=== PATIENT | male | born 1970 | race Caucasian/White ===

== ENCOUNTER 2019-09-29 10:34 | Observation (INO) | payer OTHER ==
--- NOTE | 2019-09-29 10:44 | ED ---
General Adult HPI - General Stated complaint: Chest Pain Time Seen by Provider: 09/29/19 10:34 Source: patient, RN notes reviewed, old records reviewed - History of Present Illness Initial comments: This is a 49-year-old male who presents emergency department stating that for the last 3 days he's been having some left-sided abdominal pain left upper quadrant in particular. Patient states she does have a history of pancreatitis from heavy drinking years ago. Patient states last night however he started having left-sided chest pain and the pain was radiating down his left arm today the pain became much worse continued to radiate he also became short of breath and very diaphoretic. Patient states at this point time he felt lightheaded so he decided to call EMS. Patient denies any recent fever chills or cough. Patient denies any vomiting or diarrhea. Patient denies any back pain. Patient denies headache patient denies numbness weakness. - Related Data Home Medications Medication Instructions Recorded Confirmed No Known Home Medications 09/29/19 09/29/19 Allergies Allergy/AdvReac Type Severity Reaction Status Date / Time buspirone Allergy Anaphylaxis Verified 09/29/19 12:05 ketorolac [From Toradol] Allergy Anaphylaxis Verified 09/29/19 12:05 Review of Systems ROS Statement: Those systems with pertinent positive or pertinent negative responses have been documented in the HPI. ROS Other: All systems not noted in ROS Statement are negative. General Exam - General Exam Comments Initial Comments: GENERAL: Patient is well-developed and well-nourished. Patient is nontoxic and well- hydrated and is in mild distress. ENT: Neck is soft and supple. No significant lymphadenopathy is noted. Oropharynx is clear. Moist mucous membranes. Neck has full range of motion without eliciting any pain. EYES: The sclera were anicteric and conjunctiva were pink and moist. Extraocular movements were intact and pupils were equal round and reactive to light. Eyelids were unremarkable. PULMONARY: Unlabored respirations. Good breath sounds bilaterally. No audible rales rhonchi or wheezing was noted. CARDIOVASCULAR: There is a regular rate and rhythm without any murmurs gallops or rubs. ABDOMEN: Patient is tenderness in the right upper quadrant right lower quadrant on palpation. Patient has minimal epigastric tenderness. SKIN: Skin is clear with no lesions or rashes and otherwise unremarkable. NEUROLOGIC: Patient is alert and oriented x3. Cranial nerves II through XII are grossly i ntact. Motor and sensory are also intact. Normal speech, volume and content. Symmetrical smile. MUSCULOSKELETAL: Normal extremities with adequate strength and full range of motion. No lower extremity swelling or edema. No calf tenderness. LYMPHATICS: No significant lymphadenopathy is noted PSYCHIATRIC: Normal psychiatric evaluation. Course Vital Signs 09/29/19 09/29/19 10:36 12:23 Temperature 98.2 F Pulse Rate 86 88 Respiratory 18 16 Rate Blood Pressure 163/98 144/95 O2 Sat by Pulse 95 95 Oximetry Medical Decision Making - Medical Decision Making EKG shows normal sinus rhythm at 91 bpm PA interval 144 QRS is 92 QT interval 360 QTC is 442 per patient's EKG shows no ST segment elevation or depression. Patient states chest pain has subsided but he still continues to have left upper quadrant abdominal pain. I spoke with Dr. Bustamante he agreed to admit the patient admitted the patient wrote admitting orders. - Lab Data Result diagrams: 09/29/19 11:19 09/29/19 11:19 Lab Results 09/29/19 09/29/19 09/29/19 Range/Units 11:19 11:19 11:19 WBC 6.2 (3.8-10.6) k/uL RBC 4.50 (4.30-5.90) m/uL Hgb 14.8 (13.0-17.5) gm/dL Hct 44.7 (39.0-53.0) % MCV 99.2 (80.0-100.0) fL MCH 32.9 (25.0-35.0) pg MCHC 33.2 (31.0-37.0) g/dL RDW 14.0 (11.5-15.5) % Plt Count 226 (150-450) k/uL Neutrophils % 74 % Lymphocytes % 15 % Monocytes % 7 % Eosinophils % 2 % Basophils % 1 % Neutrophils # 4.6 (1.3-7.7) k/uL Lymphocytes # 1.0 (1.0-4.8) k/uL Monocytes # 0.4 (0-1.0) k/uL Eosinophils # 0.1 (0-0.7) k/uL Basophils # 0.0 (0-0.2) k/uL PT 9.5 (9.0-12.0) sec INR 0.9 (<1.2) APTT 25.0 (22.0-30.0) sec Sodium 138 (137-145) mmol/L Potassium 4.5 (3.5-5.1) mmol/L Chloride 103 (98-107) mmol/L Carbon Dioxide 27 (22-30) mmol/L Anion Gap 8 mmol/L BUN 14 (9-20) mg/dL Creatinine 0.84 (0.66-1.25) mg/dL Est GFR (CKD-EPI)AfAm >90 (>60 ml/min/1.73 sqM) Est GFR (CKD-EPI)NonAf >90 (>60 ml/min/1.73 sqM) Glucose 110 H (74-99) mg/dL Plasma Lactic Acid Darrell (0.7-2.0) mmol/L Calcium 9.5 (8.4-10.2) mg/dL Magnesium 2.1 (1.6-2.3) mg/dL Total Bilirubin 0.4 (0.2-1.3) mg/dL AST 47 (17-59) U/L ALT 44 (4-49) U/L Alkaline Phosphatase 96 (38-126) U/L Troponin I (0.000-0.034) ng/mL Total Protein 7.6 (6.3-8.2) g/dL Albumin 4.6 (3.5-5.0) g/dL Amylase 65 (30-110) U/L Lipase 287 (23-300) U/L 09/29/19 09/29/19 Range/Units 11:19 11:19 WBC (3.8-10.6) k/uL RBC (4.30-5.90) m/uL Hgb (13.0-17.5) gm/dL Hct (39.0-53.0) % MCV (80.0-100.0) fL MCH (25.0-35.0) pg MCHC (31.0-37.0) g/dL RDW (11.5-15.5) % Plt Count (150-450) k/uL Neutrophils % % Lymphocytes % % Monocytes % % Eosinophils % % Basophils % % Neutrophils # (1.3-7.7) k/uL Lymphocytes # (1.0-4.8) k/uL Monocytes # (0-1.0) k/uL Eosinophils # (0-0.7) k/uL Basophils # (0-0.2) k/uL PT (9.0-12.0) sec INR (<1.2) APTT (22.0-30.0) sec Sodium (137-145) mmol/L Potassium (3.5-5.1) mmol/L Chloride (98-107) mmol/L Carbon Dioxide (22-30) mmol/L Anion Gap mmol/L BUN (9-20) mg/dL Creatinine (0.66-1.25) mg/dL Est GFR (CKD-EPI)AfAm (>60 ml/min/1.73 sqM) Est GFR (CKD-EPI)NonAf (>60 ml/min/1.73 sqM) Glucose (74-99) mg/dL Plasma Lactic Acid Darrell 1.4 (0.7-2.0) mmol/L Calcium (8.4-10.2) mg/dL Magnesium (1.6-2.3) mg/dL Total Bilirubin (0.2-1.3) mg/dL AST (17-59) U/L ALT (4-49) U/L Alkaline Phosphatase (38-126) U/L Troponin I <0.012 (0.000-0.034) ng/mL Total Protein (6.3-8.2) g/dL Albumin (3.5-5.0) g/dL Amylase (30-110) U/L Lipase (23-300) U/L Disposition Clinical Impression: Chest pain, Abdominal pain Disposition: ADMITTED IP TO THIS [facility] Referrals: Nonstaff,Physician [Primary Care Provider] - 1-2 days Time of Disposition: 12:33
[2019-09-29 11:32] LABS: Basophils % (A) 1 %; Eosinophils # (A) 0.1 k/uL (0-0.7); Eosinophils % (A) 2 %; HCT 44.7 % (39.0-53.0); HGB 14.8 gm/dL (13.0-17.5); Lymphocytes % (A) 15 %; MCH 32.9 pg (25.0-35.0); MCHC 33.2 g/dL (31.0-37.0); MCV 99.2 fL (80.0-100.0); Mean Platelet Volume 7.5; Monocytes # (A) 0.4 k/uL (0-1.0); Monocytes % (A) 7 %; Neutrophils # (A) 4.6 k/uL (1.3-7.7); Neutrophils % (A) 74 %; Platelet Count 226 k/uL (150-450); WBC 6.2 k/uL (3.8-10.6)
[2019-09-29 11:40] LABS: INR 0.9 (<1.2); Prothrombin Time 9.5 sec (9.0-12.0)
[2019-09-29 11:41] LABS: ALT 44 U/L (4-49); AST 47 U/L (17-59); African American GFR (CKD) >90 (>60 ml/min/1.73 sqM); Albumin 4.6 g/dL (3.5-5.0); Alkaline Phosphatase 96 U/L (38-126); Amylase 65 U/L (30-110); Anion Gap 8 mmol/L; Blood Urea Nitrogen 14 mg/dL (9-20); Calcium 9.5 mg/dL (8.4-10.2); Carbon Dioxide 27 mmol/L (22-30); Chloride 103 mmol/L (98-107); Glucose 110 mg/dL (74-99); Lipase 287 U/L (23-300); Magnesium 2.1 mg/dL (1.6-2.3); Non-African American GFR(CKD) >90 (>60 ml/min/1.73 sqM); Potassium 4.5 mmol/L (3.5-5.1); Sodium 138 mmol/L (137-145); Total Bilirubin 0.4 mg/dL (0.2-1.3); Total Protein 7.6 g/dL (6.3-8.2)
--- NOTE | 2019-09-29 11:57 | XR ---
EXAMINATION TYPE: XR chest 2V DATE OF EXAM: 09/29/2019 COMPARISON: None HISTORY: 49-year-old male with chest pain TECHNIQUE: PA and lateral views FINDINGS: Heart normal size. Mild interstitial prominence. No consolidation or pleural effusion seen. IMPRESSION: Chronic appearing changes. No definite acute cardiopulmonary process.
--- NOTE | 2019-09-29 12:03 | CT ---
EXAMINATION TYPE: CT abdomen pelvis w con DATE OF EXAM: 09/29/2019 COMPARISON: NONE HISTORY: 49-year-old male Generalized pain with nausea. TECHNIQUE: Contiguous axial scanning of the abdomen and pelvis following administration of 100 ml Iso joseph 300 IV contrast. Delayed images through the kidneys and coronal/sagittal reconstructions perform ed. CT DLP: 3118 mGycm Automated exposure control for dose reduction was used. FINDINGS: Heart normal size without pericardial effusion. Mild dependent atelectasis. No pleural effusion. Tiny hiatal hernia. Liver enlarged at 20.2 cm with marked low attenuation of the hepatic parenchyma and some fatty sparin g along the gallbladder fossa. Portal venous system is patent. No biliary ductal dilatation. Gallbladder, adrenal glands, kidneys, spleen with small anterior splenule and pancreas appear within normal limits. No dilated small bowel, free fluid, or free air. No mesenteric or retroperitoneal lymphadenopathy. Normal appendix. Mild stool burden. Mild diverticular change along the descending colon. No pericolon ic inflammatory change. Mild circumferential bladder wall thickening. No abnormal fluid collection in the pelvis or pelvic ly mphadenopathy. Right-sided pelvic phleboliths. Slightly patulous left inguinal canal. Bones: Some bony irregularity along the anterior left iliac crest, possible posttraumatic or postsurg ical deformity and there was prior bone graft harvesting. IMPRESSION: 1. HEPATOMEGALY (20.2 CM) WITH MARKED HEPATIC STEATOSIS. CORRELATE WITH LFT's, LIPID PROFILE, AND PAT IENT RISK FACTORS. 2. MINIMAL COLONIC DIVERTICULOSIS ON THE LEFT WITHOUT EVIDENCE FOR ACUTE DIVERTICULITIS. 3. MILD CIRCUMFERENTIAL BLADDER WALL THICKENING MAY BE CHRONIC IN THIS PATIENT. CORRELATE TO EXCLUDE CYSTITIS. 4. TINY HIATAL HERNIA.
[2019-09-29] MEDS ORDERED: HYDROmorphone 1 MG/ML 1 ML SYRINGE IVP STA (12:17)
[2019-09-29 12:24] VITALS: RESP 16
[2019-09-29] MEDS ORDERED: NITROGLYCERIN SL TABS 0.4 MG TAB SUBLINGUAL PRN (12:35)
[2019-09-29 13:30] VITALS: BP 153/88; PULSE 81; TEMP 98.4
[2019-09-29] MEDS ORDERED: ACETAMINOPHEN IV (For NPO) 1,000 MG in EMPTY BAG 1 BAG IVPB PRN (13:49)
[2019-09-29] MEDS ORDERED: PANTOPRAZOLE 40 MG/10 ML VIAL IVP SCH (14:00)
--- NOTE | 2019-09-29 15:11 | P.CRDCN ---
History of Present Illness History of present illness: HISTORY OF PRESENTING ILLNESS This is a pleasant 49-year-old male past medical history significant for pancreatitis and chronic nicotine dependence. He states he smokes 4 cigarettes per week. He denies prior history of coronary artery disease and does not follow in the office with a kettle firer. We have been asked to see in consultation for chest pain. He states he was working this morning in front of the [employer] in the shade. All of a sudden he had an acute onset of joey phoresiss, light headedness and chest pain. He also had left upper quadrant abdominal pain with some associated nausea. He attempted to walk to the hospital and his pain was worsening. He sat down and the pain improved. He has also been having diarrhea for 3 days and pain in his left hand and up his arm. He has seen a chiropractor twice and undergone adjustments however has seen no improvement in his pain. He is groaning and thrashing on the bed with burning pain in the left hand and up his arm and ongoing sharp abdominal pain. DIAGNOSTICS EKG reveals sinus mechanism with non-specific abnormalities. Chest xray negative for an acute cardiopulmonary process. CT of the abdomen reveals hepatomegaly with hepatic steatosis, colonic diverticulosis with no diverticulitis, mild bladder wall thickening and tiny hiatal hernia. Laboratory reviewed, CBC unremarkable, sodium 138, potassium 4.5, creatinine 0.84, magnesium 2.1, cardiac enzymes negative 2. He takes no daily cardiac medications. REVIEW OF SYSTEMS At the time of my exam: CONSTITUTIONAL: Denies fever or chills. CARDIOVASCULAR: Complains of chest pain. Denies shortness of breath, orthopnea, PND or palpitations. RESPIRATORY: Denies cough. GASTROINTESTINAL: Complains of abdominal pain and diarrhea. Denies constipation, nausea or vomiting. MUSCULOSKELETAL: Complains of burning left hand pain. NEUROLOGIC: Denies numbness, tingling or weakness. ENDOCRINE: Denies fatigue, weight change, polydipsia or polyurina. GENITOURINARY: Denies burning, hematuria or urgency with micturation. HEMATOLOGIC: Denies history of anemia or bleeding. PHYSICAL EXAMINATION Blood pressure 153/88 heart rate 73 afebrile and maintaining oxygen saturation on room air. CONSTITUTIONAL: No apparent distress. Obese. HEENT: Head is normocephalic. Pupils are equal, round. Sclerae anicteric. Mucous membranes of the mouth are moist. No JVD. No carotid bruit. CHEST EXAMINATION: Lungs are clear to auscultation. No chest wall tenderness is noted on palpation or with deep breathing. HEART EXAMINATION: Regular rate and rhythm. S1, S2 heard. No murmurs, gallops or rub. ABDOMEN: Soft, nontender. Positive bowel sounds. EXTREMITIES: 2+ peripheral pulses, no lower extremity edema and no calf tenderness. NEUROLOGIC EXAMINATION: Patient is awake, alert and oriented x3. ASSESSMENT Chest pain with radiation down the left arm. Some features of unstable angina. Abdominal pain with associated nausea and diarrhea Obese, BMI 39 PLAN Continue to obtain serial cardiac enzymes to rule out an acute event. Obtain 2-D echocardiogram and Doppler study to assess cardiac structure and function. Nothing by mouth after midnight tonight for possible stress test in the morning. Further recommendations to follow based upon clinical course. Complete tobacco cessation recommended. Thank you kindly for this consultation. Nurse Practitioner note has been reviewed, I agree with a documented findings and plan of care. Patient was seen and examined. Past Medical History Additional Past Medical History / Comment(s): pancreatitis, anxiety, ddd History of Any Multi-Drug Resistant Organisms: None Reported Past Surgical History: No Surgical Hx Reported Past Psychological History: Anxiety Smoking Status: Former smoker Past Alcohol Use History: Rare Past Drug Use History: Marijuana Medications and Allergies Home Medications Medication Instructions Recorded Confirmed Type No Known Home Medications 09/29/19 09/29/19 History Allergies Allergy/AdvReac Type Severity Reaction Status Date / Time buspirone Allergy Anaphylaxis Verified 09/29/19 12:05 ketorolac [From Toradol] Allergy Anaphylaxis Verified 09/29/19 12:05 Physical Exam Vitals: Vital Signs Temp Pulse Pulse Resp BP BP Pulse Ox 09/29/19 13:04 73 16 98 09/29/19 12:55 98.4 F 81 14 153/88 95 09/29/19 12:35 93 L 09/29/19 12:23 88 16 144/95 95 09/29/19 10:36 98.2 F 86 18 163/98 95 Intake and Output 09/29/19 09/29/19 09/29/19 06:59 14:59 22:59 Other: # Voids 1 Weight 145.15 kg Results 09/29/19 11:19 09/29/19 11:19 Cardiac Enzymes 09/29/19 09/29/1909/28/20 Range/Units 11:19 11:19 14:17 AST 47 (17-59) U/L Troponin I <0.012 <0.012 (0.000-0.034) ng/mL Coagulation 09/29/19 Range/Units 11:19 PT 9.5 (9.0-12.0) sec APTT 25.0 (22.0-30.0) sec CBC 09/29/19 Range/Units 11:19 WBC 6.2 (3.8-10.6) k/uL RBC 4.50 (4.30-5.90) m/uL Hgb 14.8 (13.0-17.5) gm/dL Hct 44.7 (39.0-53.0) % Plt Count 226 (150-450) k/uL Comprehensive Metabolic Panel 09/29/19 Range/Units 11:19 Sodium 138 (137-145) mmol/L Potassium 4.5 (3.5-5.1) mmol/L Chloride 103 (98-107) mmol/L Carbon Dioxide 27 (22-30) mmol/L BUN 14 (9-20) mg/dL Creatinine 0.84 (0.66-1.25) mg/dL Glucose 110 H (74-99) mg/dL Calcium 9.5 (8.4-10.2) mg/dL AST 47 (17-59) U/L ALT 44 (4-49) U/L Alkaline Phosphatase 96 (38-126) U/L Total Protein 7.6 (6.3-8.2) g/dL Albumin 4.6 (3.5-5.0) g/dL Current Medications Generic Name Dose Route Start Last Admin Trade Name Freq PRN Reason Stop Dose Admin Aspirin 325 mg 09/30/19 09:00 Aspirin PO DAILY [facility] Acetaminophen 1,000 mg/ IV 100 mls @ 400 mls/hr 09/29/19 13:49 Solution IVPB 09/30/19 06:14 Q6HR PRN Pain Nitroglycerin 0.4 mg 09/29/19 12:35 Nitrostat SUBLINGUAL Q5M PRN Chest Pain Nitroglycerin 1 inch 09/29/19 18:00 Nitro-Bid Oint TOPICAL Q6HR [facility] Pantoprazole Sodium 40 mg 09/29/19 14:00 09/29/19 14:11 Protonix IVP 40 mg DAILY [facility] Administration Intake and Output 09/29/19 09/29/19 09/29/19 06:59 14:59 22:59 Other: # Voids 1 Weight 145.15 kg Patient Weight 09/30/19 06:59 Weight 145.15 kg 09/29/19 11:19 09/29/19 11:19
[2019-09-29] MEDS ORDERED: HYDROmorphone 0.5 MG/0.5 ML SYRINGE IVP STA (15:53)
--- NOTE | 2019-09-29 16:59 | P.GSCN ---
History of Present Illness Consult date: 09/29/19 Reason for Consult: Abdominal pain History of present illness: Is a 49-year-old male who has complaints of left-sided abdominal pain. Patient obese. He has a very protuberant abdomen. Patient's points of left-sided abdominal pain which radiates to his back. Past Medical History Additional Past Medical History / Comment(s): pancreatitis, anxiety, ddd History of Any Multi-Drug Resistant Organisms: None Reported Past Surgical History: No Surgical Hx Reported Past Psychological History: Anxiety Smoking Status: Former smoker Past Alcohol Use History: Rare Past Drug Use History: Marijuana Medications and Allergies Home Medications Medication Instructions Recorded Confirmed Type No Known Home Medications 09/29/19 09/29/19 History Allergies Allergy/AdvReac Type Severity Reaction Status Date / Time buspirone Allergy Anaphylaxis Verified 09/29/19 12:05 ketorolac [From Toradol] Allergy Anaphylaxis Verified 09/29/19 12:05 Surgical - Exam Vital Signs Temp Pulse Resp BP Pulse Ox 98.2 F 86 18 163/98 95 09/29/19 10:36 09/29/19 10:36 09/29/19 10:36 09/29/19 10:36 09/29/19 10:36 - General well developed, well nourished, no distress - Eyes PERRL - ENT normal pinna - Neck no masses - Respiratory normal expansion - Cardiovascular Rhythm: regular - Abdomen Minimal left-sided tenderness Abdomen: soft Results - Labs 09/29/19 11:19 09/29/19 11:19 Abnormal Lab Results - Last 24 Hours (Table) 09/29/19 Range/Units 11:19 Glucose 110 H (74-99) mg/dL Diabetes panel 09/29/19 Range/Units 11:19 Sodium 138 (137-145) mmol/L Potassium 4.5 (3.5-5.1) mmol/L Chloride 103 (98-107) mmol/L Carbon Dioxide 27 (22-30) mmol/L BUN 14 (9-20) mg/dL Creatinine 0.84 (0.66-1.25) mg/dL Glucose 110 H (74-99) mg/dL Calcium 9.5 (8.4-10.2) mg/dL AST 47 (17-59) U/L ALT 44 (4-49) U/L Alkaline Phosphatase 96 (38-126) U/L Total Protein 7.6 (6.3-8.2) g/dL Albumin 4.6 (3.5-5.0) g/dL Calcium panel 09/29/19 Range/Units 11:19 Calcium 9.5 (8.4-10.2) mg/dL Albumin 4.6 (3.5-5.0) g/dL Pituitary panel 09/29/19 Range/Units 11:19 Sodium 138 (137-145) mmol/L Potassium 4.5 (3.5-5.1) mmol/L Chloride 103 (98-107) mmol/L Carbon Dioxide 27 (22-30) mmol/L BUN 14 (9-20) mg/dL Creatinine 0.84 (0.66-1.25) mg/dL Glucose 110 H (74-99) mg/dL Calcium 9.5 (8.4-10.2) mg/dL Adrenal panel 09/29/19 Range/Units 11:19 Sodium 138 (137-145) mmol/L Potassium 4.5 (3.5-5.1) mmol/L Chloride 103 (98-107) mmol/L Carbon Dioxide 27 (22-30) mmol/L BUN 14 (9-20) mg/dL Creatinine 0.84 (0.66-1.25) mg/dL Glucose 110 H (74-99) mg/dL Calcium 9.5 (8.4-10.2) mg/dL Total Bilirubin 0.4 (0.2-1.3) mg/dL AST 47 (17-59) U/L ALT 44 (4-49) U/L Alkaline Phosphatase 96 (38-126) U/L Total Protein 7.6 (6.3-8.2) g/dL Albumin 4.6 (3.5-5.0) g/dL - Imaging CT scan - abdomen: report reviewed (Mild diverticulosis, some tiny hiatal hernia Some urinary bladder thickening.) Assessment and Plan Assessment: Abdominal pain. Unsure of etiology's point. The patient will be observed. I do not think he'll need any surgical intervention.
[2019-09-29] MEDS ORDERED: NITROGLYCERIN OINT 1 INCH/GM PACKET TOPICAL SCH (18:00)
[2019-09-29] MEDS ORDERED: RX INFO: IV CONTRAST WAS GIVEN 1 EACH MISC MISCELLANE PRN (18:30)
--- NOTE | 2019-09-29 20:21 | US ---
EXAMINATION TYPE: US venous doppler duplex UE LT DATE OF EXAM: 09/29/2019 COMPARISON: NONE CLINICAL HISTORY: Pain and swelling left arm. Left arm pain x couple days SIDE PERFORMED: Left Difficult and limited study due to patient body habitus Left Arm: Appears negative for DVT IMPRESSION: No evidence of deep vein thrombosis in the left arm.
--- NOTE | 2019-09-29 22:57 | HP ---
HISTORY AND PHYSICAL This patient is a 49-year-old white male who came in with pancreatitis, left flank pain of a severe nature, nicotine addiction, and left hand pain and swelling that shoots up his arm and goes through his chest to his back. He has had some nausea. He has had this similar pain when he had pancreatitis in the past, but he is negative for pancreatitis. He had a neck adjustment by a chiropractor, with no relief of his left arm pain. He was groaning, thrashing on the bed with burning pain in his left hand. He states his left hand swells whenever he moves it and he is very concerned. Cardiology saw him and ordered a stress test. Surgery saw him and had no recommendations. CT scan of the abdomen and pelvis did not show any significant abnormalities. Chest x-ray is negative. CT abdomen showed hepatomegaly with hepatic steatosis, colonic diverticulitis, mild bladder thickening, hiatal hernia. CBC is normal. Labs are normal. REVIEW OF SYSTEMS: Fourteen-point review of systems negative except for mentioned in HPI. PHYSICAL EXAMINATION: Vital signs are reviewed. ENDOCRINE: BMI is over 40. He appears obese. PSYCH: He appears anxious, nervous. CARDIAC: Negative. LUNGS: Clear. GI: Distended. Abdominal pain, diarrhea. VITAL SIGNS: Heart rate 73, blood pressure 153/88. Maintaining oxygen saturation on room air. Pupils equal, round, reactive. HEART: S1, S2. ABDOMEN: Soft. EXTREMITIES: Negative edema. I do not see evidence of left hand swelling. His pulses, dorsalis pedis and posterior tibial, are normal as well as his left arm and right arm. ASSESSMENT: 1. Atypical chest pain; rule out unstable angina. Stress test was ordered. CT scan of his chest is pending. Will get Neurology for possible radiculopathy shooting down his left arm and hand issues. 2. Morbid obesity. Echo has been ordered. Neurology, cardiology consults. Stress test tomorrow. Prognosis guarded. MMODL / IJN: [id number] /
[2019-09-30] MEDS ORDERED: ASPIRIN 325 MG TAB PO SCH (09:00)
--- NOTE | 2019-09-30 10:00 | ECHOF ---
Referral Reason:cp MEASUREMENTS -------- HEIGHT: 193.0 cm WEIGHT: 145.1 kg BP: 153/88 RVIDd: 3.2 cm (< 3.3) IVSd: 1.6 cm (0.6 - 1.1) LVIDd: 3.9 cm (3.9 - 5.3) LVPWd: 1.5 cm (0.6 - 1.1) IVSs: 1.9 cm LVIDs: 2.7 cm LVPWs: 1.9 cm LA Diam: 3.1 cm (2.7 - 3.8) Ao Diam: 3.2 cm (2.0 - 3.7) AV Cusp: 2.4 cm (1.5 - 2.6) MV EXCURSION: 16.594 mm (> 18.000) MV EF SLOPE: 126 mm/s (70 - 150) EPSS: 0.4 cm MV E Chintan: 0.78 m/s MV DecT: 220 ms MV A Chintan: 0.85 m/s MV E/A Ratio: 0.91 FINDINGS -------- Sinus rhythm. This was a technically adequate study. The left ventricular size is normal. There is moderate concentric left ventricular hypertrophy. O verall left ventricular systolic function is normal with, an EF between 60 - 65 %. The right ventricle is normal in size. The left atrial size is normal. The right atrium is normal in size. Interatrial and interventricular septum intact. Aortic valve is trileaflet and is mildly thickened. The mitral valve is normal. The tricuspid valve appears structurally normal. The pulmonic valve is normal. The aortic root size is normal. IVC Not well visulized. There is no pericardial effusion. CONCLUSIONS -------- 1. Sinus rhythm. 2. This was a technically adequate study. 3. The left ventricular size is normal. 4. There is moderate concentric left ventricular hypertrophy. 5. Overall left ventricular systolic function is normal with, an EF between 60 - 65 %. 6. Aortic valve is trileaflet and is mildly thickened. 7. There is no pericardial effusion. [employer] ARCHITECT: Dorita Cummings [facility]
--- NOTE | 2019-10-16 06:28 | DS ---
DISCHARGE SUMMARY DATE OF ADMISSION: 09/29/2019 DATE OF DISCHARGE: 09/29/2019. MEDICATIONS: None. CONDITION: Stable. PROGNOSIS: Guarded. ACTIVITY: Ambulate as tolerated. HISTORY OF PRESENT ILLNESS: The patient came in with abdominal pain. Admitted to the observation floor with abdominal pain that radiate to his back. Surgery saw the patient. CT scan shows diverticulosis, some urinary thickening, small hiatal hernia. He is cleared by Surgery to go home. Cardiology saw the patient and ordered an echo for atypical chest pain. EKG showed nonspecific findings. CT shows fatty liver, otherwise no significant findings. Takes no cardiac medicines. Cardiology had cardiac enzymes to rule out [place]. Echo was normal. The patient was cleared by Surgery and Cardiology prior to discharge home. MMODL / IJN: [id number] /
== END 2019-09-29 20:10 | disposition left against medical advice (07) ==
LOC: EC 10:34 → 1SOBS 12:45
PROVIDERS: ADMIT Family Medicine; ATTEND Family Medicine
DX: R07.9 Chest pain, unspecified (principal); R10.9 Unspecified abdominal pain; R42 Dizziness and giddiness; R11.0 Nausea; R61 Generalized hyperhidrosis; R19.7 Diarrhea, unspecified; E66.01 Morbid (severe) obesity due to excess calories; F17.210 Nicotine dependence, cigarettes, uncomplicated; K44.9 Diaphragmatic hernia without obstruction or gangrene; K76.0 Fatty (change of) liver, not elsewhere classified; Z68.39 Body mass index [BMI] 39.0-39.9, adult; Z88.8 Allergy status to other drugs, medicaments and biological substances; Z71.6 Tobacco abuse counseling; K57.30 Diverticulosis of large intestine without perforation or abscess without bleeding; Z03.818 Encounter for observation for suspected exposure to other biological agents ruled out
CPT/HCPCS: 96376; 96374; 96375; 99285; 36415; 93005; 93306; 80053; 82150; 83605; 83690; 83735; 84484; 85025; 85610; 85730; 71046; 93971; 74177; G0378; U0003; J1170 ×2; C9113; Q9967

== ENCOUNTER 2021-08-21 10:40 | Emergency (ER) | payer OTHER ==
--- NOTE | 2021-08-21 11:21 | ED ---
General Adult HPI - General Chief complaint: Abdominal Pain Stated complaint: Abd/Chest pain Time Seen by Provider: 08/21/21 10:48 Source: patient Mode of arrival: wheelchair Limitations: no limitations - History of Present Illness Initial comments: Dictation was produced using [employer] dictation software. please excuse any grammatical, word or spelling errors. Chief Complaint: 51-year-old male presents emergency department for abdominal pain History of Present Illness: 51-year-old male presents emergency department for abdominal pain. Patient states that he was admitted to [facility] on Sunday of last week. Patient states that he ate only been there a day when he decides to leave AGAINST MEDICAL ADVICE because his roommate was passing malodorous gas. 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 Patient states that he had an episode of abdominal pain and syncope which is why he went to [facility]. They allegedly performed a CT that showed a kink and the celiac artery stent. He left AGAINST MEDICAL ADVICE on Sunday. Most of the day Sunday he tried to eat small meals however today states that his pain still continuing so ended up going to her emergency department. Patient states he lives locally. The ROS documented in this emergency department record has been reviewed and confirmed by me. Those systems with pertinent positive or negative responses have been documented in the HPI. All other systems are other negative and/or noncontributory. PHYSICAL EXAM: General Impression: Alert and oriented x3, not in acute distress HEENT: Normocephalic atraumatic, extra-ocular movements intact, pupils equal and reactive to light bilaterally, mucous membranes moist. Cardiovascular: Heart regular rate and rhythm Chest: Able to complete full sentences, no retractions, no tachypnea Abdomen: abdomen soft, diffuse palpable abdominal tenderness non-distended, no organomegaly Musculoskeletal: Pulses present and equal in all extremities, no peripheral edema Motor: no focal deficits noted Neurological: CN II-XII grossly intact, no focal motor or sensory deficits noted Skin: Intact with no visualized rashes Psych: Normal affect and mood ED course: 51-year-old male presents emergency department for abdominal pain. Patient provides history that he was recently admitted to [facility] for application from a celiac artery stent. Left there AGAINST MEDICAL ADVICE. He presents today for persistent symptoms. There were some faxed documentation sent over from [facility]. They evaluated patient there. He was there late last week after leaving AGAINST MEDICAL ADVICE from [facility]. He was being admitted for vascular consultation. Present documentation of any sort of CT imagingperformed within the last couple weeks. Patient reevaluated at 1:30 PM. Patient is well- appearing at the bedside. Is not in any sort of acute distress. He is reviewing things on his phone without any sort of distress. EKG interpretation: Ventricular rate 83, sinus rhythm, ID interval 162, care is 90, QTC 392. No ID prolongation, no QTC prolongation, no ST or T-wave changes noted. EKG compared to 09/29/2019 showing no changes. Overall, this EKG is unremarkable I get the sense that patient was malingering. Case is discussed with . cardiovascular surgery who is very familiar with the patient. Dr. Gomes has evaluated this patient on multiple occasions in several different emergency rooms in [place]. He is known to visit several emergency rooms and leave AGAINST MEDICAL ADVICE on multiple occasions. Dr. Gomes has evaluated this patient personally and knows him very well. He says patient has not followed up in his office as instructed in the recent past. Patient reevaluated bedside at 1:40 PM is in stable medical condition. Is in no acute distress. Patient be discharged with instruction to follow up with vascular surgery as been instructed many times by vascular surgeon. Return precautions discussed. Patient is agreeable to plan. - Related Data Home Medications Medication Instructions Recorded Confirmed No Known Home Medications 09/29/19 08/21/21 Allergies Allergy/AdvReac Type Severity Reaction Status Date / Time buspirone Allergy Anaphylaxis Verified 08/21/21 12:29 dicyclomine [From Bentyl] Allergy Unknown Verified 08/21/21 12:29 ketorolac [From Toradol] Allergy Anaphylaxis Verified 08/21/21 12:29 haloperidol [From Haldol] AdvReac "made him Verified 08/21/21 12:29 freak out" Review of Systems ROS Statement: Those systems with pertinent positive or pertinent negative responses have been documented in the HPI. ROS Other: All systems not noted in ROS Statement are negative. Past Medical History Additional Past Medical History / Comment(s): pancreatitis, anxiety, ddd History of Any Multi-Drug Resistant Organisms: None Reported Past Surgical History: No Surgical Hx Reported Past Psychological History: Anxiety Smoking Status: Former smoker Past Alcohol Use History: Rare Past Drug Use History: Marijuana General Exam Limitations: no limitations Course Vital Signs 08/21/21 10:41 Temperature 98.1 F Pulse Rate 82 Respiratory 16 Rate Blood Pressure 199/86 O2 Sat by Pulse 99 Oximetry Medical Decision Making - Lab Data Result diagrams: 08/21/21 11:18 08/21/21 11:18 Lab Results 08/21/21 08/21/21 08/21/21 Range/Units 11:18 11:18 11:18 WBC 4.4 (3.8-10.6) k/uL RBC 4.34 (4.30-5.90) m/uL Hgb 12.6 L (13.0-17.5) gm/dL Hct 41.5 (39.0-53.0) % MCV 95.5 (80.0-100.0) fL MCH 29.1 (25.0-35.0) pg MCHC 30.4 L (31.0-37.0) g/dL RDW 15.1 (11.5-15.5) % Plt Count 184 (150-450) k/uL MPV 8.7 Neutrophils % (Manual) 72 % Lymphocytes % (Manual) 12 % Monocytes % (Manual) 15 % Eosinophils % (Manual) 1 % Neutrophils # (Manual) 3.17 (1.3-7.7) k/uL Lymphocytes # (Manual) 0.53 L (1.0-4.8) k/uL Monocytes # (Manual) 0.66 (0-1.0) k/uL Eosinophils # (Manual) 0.04 (0-0.7) k/uL Nucleated RBCs 0 (0-0) /100 WBC Manual Slide Review Performed Hypochromasia Slight Poikilocytosis (manual Present Anisocytosis (manual) Present PT 10.0 (9.0-12.0) sec INR 0.9 (<1.2) APTT 20.3 L (22.0-30.0) sec Sodium 140 (137-145) mmol/L Potassium 4.8 (3.5-5.1) mmol/L Chloride 107 (98-107) mmol/L Carbon Dioxide 24 (22-30) mmol/L Anion Gap 9 mmol/L BUN 15 (9-20) mg/dL Creatinine 0.86 (0.66-1.25) mg/dL Est GFR (CKD-EPI)AfAm >90 (>60 ml/min/1.73 sqM) Est GFR (CKD-EPI)NonAf >90 (>60 ml/min/1.73 sqM) Glucose 119 H (74-99) mg/dL Calcium 8.8 (8.4-10.2) mg/dL Magnesium 1.9 (1.6-2.3) mg/dL Total Bilirubin 0.2 (0.2-1.3) mg/dL AST 37 (17-59) U/L ALT 42 (4-49) U/L Alkaline Phosphatase 88 (38-126) U/L Total Protein 7.7 (6.3-8.2) g/dL Albumin 4.5 (3.5-5.0) g/dL Lipase 230 (23-300) U/L Disposition Clinical Impression: Abdominal pain Disposition: HOME SELF-CARE Condition: Fair Instructions (If sedation given, give patient instructions): Abdominal Pain (ED) Is patient prescribed a controlled substance at d/c from ED?: No Referrals: Sergio Gomes DO [STAFF PHYSICIAN] - 1-2 days Time of Disposition: 13:39
[2021-08-21] MEDS ORDERED: HYDROmorphone 1 MG/ML 1 ML SYRINGE IVP STA (11:35)
[2021-08-21 11:45] LABS: ALT 42 U/L (4-49); AST 37 U/L (17-59); African American GFR (CKD) >90 (>60 ml/min/1.73 sqM); Albumin 4.5 g/dL (3.5-5.0); Alkaline Phosphatase 88 U/L (38-126); Anion Gap 9 mmol/L; Blood Urea Nitrogen 15 mg/dL (9-20); Calcium 8.8 mg/dL (8.4-10.2); Carbon Dioxide 24 mmol/L (22-30); Chloride 107 mmol/L (98-107); Glucose 119 mg/dL (74-99); Lipase 230 U/L (23-300); Magnesium 1.9 mg/dL (1.6-2.3); Non-African American GFR(CKD) >90 (>60 ml/min/1.73 sqM); Potassium 4.8 mmol/L (3.5-5.1); Sodium 140 mmol/L (137-145); Total Bilirubin 0.2 mg/dL (0.2-1.3); Total Protein 7.7 g/dL (6.3-8.2)
[2021-08-21 11:58] LABS: INR 0.9 (<1.2)
[2021-08-21 11:59] LABS: HCT 41.5 % (39.0-53.0); HGB 12.6 gm/dL (13.0-17.5); Hypochromasia Slight; MCH 29.1 pg (25.0-35.0); MCHC 30.4 g/dL (31.0-37.0); MCV 95.5 fL (80.0-100.0); Mean Platelet Volume 8.7; Platelet Count 184 k/uL (150-450); RBC 4.34 m/uL (4.30-5.90); RDW 15.1 % (11.5-15.5); WBC 4.4 k/uL (3.8-10.6)
[2021-08-21 12:25] LABS: Partial Thromboplastin Time 20.3 sec (22.0-30.0)
[2021-08-21] MEDS ORDERED: HYDROmorphone 0.5 MG/0.5 ML SYRINGE IVP STA (13:03)
[2021-08-21 13:05] LABS: Anisocytosis (M) Present; Eosinophils # (M) 0.04 k/uL (0-0.7); Lymphocytes # (M) 0.53 k/uL (1.0-4.8); Monocytes # (M) 0.66 k/uL (0-1.0); Neutrophils # (M) 3.17 k/uL (1.3-7.7); Neutrophils % (M) 72 %; Nucleated Red Blood Cells 0 /100 WBC (0-0); Poikilocytosis (M) Present; Total Cells Counted 100
[2021-08-21 13:56] VITALS: BP 148/68; PULSE 87; RESP 18; TEMP 97.5
== END 2021-08-21 13:57 | disposition home or self-care (01) ==
LOC: EC 10:40
DX: R10.9 Unspecified abdominal pain (principal); Z87.891 Personal history of nicotine dependence; Z88.8 Allergy status to other drugs, medicaments and biological substances; Z88.6 Allergy status to analgesic agent; Z53.29 Procedure and treatment not carried out because of patient's decision for other reasons
CPT/HCPCS: 36415; 93005; 80053; 83690; 83735; 85025; 85610; 85730; 99284; 96374; 96376; J1170 ×2